=== PATIENT | male | born 1955 | race Caucasian/White ===

== ENCOUNTER 2021-09-22 08:01 | Day surgery (SDC) | payer OTHER ==
[~2021-09-22] VITALS: Ht 180.3 cm; Wt 78.9 kg
[~2021-09-22 08:01] MED LIST: DOCU100C33 PO; DULO20CA71 PO; GABA800T9 PO; LISI10TA24 PO; METF-446 PO; SODIUM CHLORIDE 0.9% 1,000 ML IV ONE; SODIUM CHLORIDE 0.9% 1,000 ML ONE
[2021-09-22] MEDS ORDERED: PROPOFOL 1% 20 ML VIAL IVP ONE (08:02)
[2021-09-22] MEDS ORDERED: AMLO-257 PO (08:32)
[2021-09-22] MEDS ORDERED: ASPI-1450 PO (08:32)
[2021-09-22] MEDS ORDERED: ATOR40TA28 PO (08:32)
[2021-09-22] MEDS ORDERED: GLIP5TAB12 PO (08:32)
[2021-09-22 08:46] LABS: COVID AG,FIA SOURCE NASAL SWAB
[2021-09-22 09:02] LABS: GLUCOMETER DEV NAME(LOC) SDS.; GLUCOSE,POINT OF CARE 106 MG/DL (70-110)
== END 2021-09-22 11:00 | disposition home or self-care (01) ==
LOC: SURGERY 08:01
PROVIDERS: ATTEND Internal Medicine Gastroenterology
DX: Z12.11 Encounter for screening for malignant neoplasm of colon (principal); K64.0 First degree hemorrhoids; I10 Essential (primary) hypertension; E11.9 Type 2 diabetes mellitus without complications; Z79.899 Other long term (current) drug therapy; Z98.890 Other specified postprocedural states; Z80.0 Family history of malignant neoplasm of digestive organs; Z20.822 Contact with and (suspected) exposure to COVID-19
CPT/HCPCS: 45378; 82962; 87426; C9803; J2704; J7030